=== PATIENT | male | born 1970 | race Two or more races ===

== ENCOUNTER 2017-12-13 15:02 | Emergency (ER) | payer BC, OTHER ==
[~2017-12-13] VITALS: Ht 177.8 cm; Wt 93.4 kg
[2017-12-13 15:02] VITALS: BP 139/93
[2017-12-13] MEDS ORDERED: IBUPROFEN 600 MG TABLET PO ONE ×2 (16:10→16:30)
== END 2017-12-13 17:14 | disposition home or self-care (01) ==
LOC: ER 15:09
DX: S93.402A Sprain of unspecified ligament of left ankle, initial encounter (principal); X50.1XXA Overexertion from prolonged static or awkward postures, initial encounter; Y93.89 Activity, other specified; Y92.89 Other specified places as the place of occurrence of the external cause; Y99.8 Other external cause status
CPT/HCPCS: 73610; 99284; A4606; Z7610